=== PATIENT | female | born 1940 | race Caucasian/White ===

== ENCOUNTER → 2016-08-11 | Outpatient (CLI) | payer MEDICARE, OTHER | END | disposition home or self-care (01) | LOC: PCVCIMAG 10:23 | PROVIDERS: ATTEND Nuclear Medicine Nuclear Cardiology | DX: L97.822 Non-pressure chronic ulcer of other part of left lower leg with fat layer exposed (principal); E11.40 Type 2 diabetes mellitus with diabetic neuropathy, unspecified; I87.2 Venous insufficiency (chronic) (peripheral); M86.669 Other chronic osteomyelitis, unspecified tibia and fibula | CPT/HCPCS: 93925 ==